=== PATIENT | female | born 1950 | race Asian ===

== ENCOUNTER 2017-03-16 08:57 | Day surgery (SDC) | payer OTHER ==
[~2017-03-16] VITALS: Ht 160 cm; Wt 64.5 kg
[2017-03-16] MEDS ORDERED: LISI20 (09:30)
[2017-03-16] MEDS ORDERED: PRAV20 (09:31)
== END 2017-03-16 11:35 | disposition home or self-care (01) ==
LOC: ORSCSDS 08:57
PROVIDERS: Internal Medicine Gastroenterology
PROC: 0DB98ZX Excision of Duodenum, Via Natural or Artificial Opening Endoscopic, Diagnostic (ICD-10-PCS; principal; 2017-03-16 15:15)
PROC: 0DB68ZX Excision of Stomach, Via Natural or Artificial Opening Endoscopic, Diagnostic (ICD-10-PCS; principal; 2017-03-16 15:15)
DX: R10.13 Epigastric pain (principal); K31.7 Polyp of stomach and duodenum; R11.0 Nausea; Z87.891 Personal history of nicotine dependence; E78.5 Hyperlipidemia, unspecified; Z79.899 Other long term (current) drug therapy
CPT/HCPCS: 88305; 88342; J7120

== ENCOUNTER → 2017-06-13 | Outpatient (CLI) | payer OTHER ==
[~2017-06-13] MED LIST: LISI20; PRAV20
== END ==
LOC: LAB SHORT 13:23 → LAB EV 13:23
DX: J06.9 Acute upper respiratory infection, unspecified (principal)
CPT/HCPCS: 87070

== ENCOUNTER 2018-08-27 06:35 | Emergency (ER) | payer OTHER ==
[~2018-08-27] VITALS: Ht 157.5 cm; Wt 62.6 kg
[2018-08-27 07:04] LABS: BASOPHILS ABSOLUTE AUTO 0.02 K/mm3 (0.00-0.23); BASOPHILS PERCENT AUTO 0 % (0-2); EOSINOPHILS ABSOLUTE AUTO 0.09 K/mm3 (0.00-0.68); EOSINOPHILS PERCENT AUTO 1 % (0-6); Hematocrit 45.1 % (33.0-51.0); Hemoglobin 14.7 g/dL (11.5-16.0); IMMATURE GRAN ABSOLUTE AUTO 0.03 K/mm3 (0.00-0.10); IMMATURE GRAN PERCENT AUTO 0 % (0-1); LYMPHOCYTES PERCENT AUTO 28 % (21-46); MONOCYTES ABSOLUTE AUTO 0.57 K/mm3 (0.16-1.47); MONOCYTES PERCENT AUTO 6 % (4-13); Mean Corpuscular HGB 30.8 pg (26.0-34.0); Mean Corpuscular HGB Conc 32.6 g/dL (31.5-36.5); Mean Corpuscular Volume 94 fL (80-100); Mean Platelet Volume 9.1 fL (9.1-12.4); NEUTROPHILS ABSOLUTE AUTO 6.22 K/mm3 (1.96-9.15); NEUTROPHILS PERCENT AUTO 65 % (41-73); Platelet Count 241 K/mm3 (150-400); RDW Coefficient Variation 12.8 % (11.7-14.2); RDW Standard Deviation 44.3 fL (35.1-46.3); Red Blood Cell Count 4.78 M/mm3 (3.80-5.20); White Blood Cell Count 9.63 K/mm3 (4.00-11.30)
[2018-08-27 07:25] LABS: Alanine Aminotransfer (ALT/SGP 24 U/L (12-78); Albumin, Blood 3.6 g/dL (3.4-5.0); Alk Phos 72 U/L (50-136); Anion Gap 5 mmol/L (6-16); Aspartate Aminotrans (AST/SGOT 16 U/L (12-37); Bilirubin, Total 0.5 mg/dL (0.1-1.0); Blood Urea Nitrogen 20 mg/dL (8-24); Bun/Creatinine Ratio 23.2 (12.0-20.0); CO2, Blood 31 mmol/L (21-32); Calcium, Blood 8.8 mg/dL (8.5-10.1); Chloride, Blood 105 mmol/L (98-108); Creatinine, Blood 0.86 mg/dL (0.40-1.00); Globulin, Blood 3.5 g/dL (2.2-4.0); Glomerular Filtration Rate >60 (60-); Glucose, Blood 85 mg/dL (70-99); Potassium, Blood 3.9 mmol/L (3.5-5.5); Sodium, Blood 141 mmol/L (136-145); Total Protein, Blood 7.1 g/dL (6.4-8.2)
[2018-08-27] MEDS ORDERED: CLON.5 PO (07:53)
[2018-08-27] MEDS ORDERED: Prilosec Otc20 MG PO (07:53)
[2018-08-27] MEDS ORDERED: Amlodipine Besyl5 MG PO (07:53)
[2018-08-27] MEDS ORDERED: PRAV20 PO (07:54)
[2018-08-27] MEDS ORDERED: LISI20 PO (07:54)
[2018-08-27] MEDS ORDERED: MECL12.5 PO (08:56)
== END 2018-08-27 09:18 | disposition home or self-care (01) ==
LOC: ER 06:35
PROVIDERS: Emergency Medicine
DX: R42 Dizziness and giddiness (principal); Z79.899 Other long term (current) drug therapy
CPT/HCPCS: 36415; 80053; 85025; 96360; 99283-25; A9270; J7030

== ENCOUNTER 2018-08-28 06:23 | Emergency (ER) | payer OTHER ==
[~2018-08-28] VITALS: Ht 162.6 cm; Wt 63.5 kg
[~2018-08-28 06:23] MED LIST changes: +Amlodipine Besyl5 MG PO; +CLON.5 PO; +LISI20 PO; +MECL12.5 PO; +PRAV20 PO; +Prilosec Otc20 MG PO
== END 2018-08-28 08:44 | disposition home or self-care (01) ==
LOC: ER 06:23
DX: R42 Dizziness and giddiness (principal)
CPT/HCPCS: 99283

== ENCOUNTER → 2020-11-06 | Outpatient (CLI) | payer OTHER ==
[2020-11-06 10:26] LABS: Appearance, Urine Clear (Clear); Bilirubin, Urine Neg (Neg); Blood, Urine Neg (Neg); Color, Urine Yellow (P-Yellow); Glucose Qualitative, Urine Neg (Normal); Ketones, Urine Neg (Neg); Leukocyte Esterase, Urine Neg (Neg); Nitrite, Urine Neg (Neg); Protein, Urine Neg (Neg); Specific Gravity, Urine 1.005 (1.003-1.022); Urobilinogen, Urine NORM (Normal)
== END ==
LOC: LAB SHORT 10:18 → LAB 10:18
PROVIDERS: Family Medicine
DX: R39.89 Other symptoms and signs involving the genitourinary system (principal)
CPT/HCPCS: 81003

== ENCOUNTER → 2021-11-03 | Outpatient (CLI) | payer OTHER ==
[2021-11-03 13:57] LABS: Stool Occult Bld Immuno 1 Negative (NEGATIVE)
== END | disposition home or self-care (01) ==
LOC: LAB SHORT 12:44
PROVIDERS: Family Medicine
DX: Z12.11 Encounter for screening for malignant neoplasm of colon (principal)
CPT/HCPCS: 82274

== ENCOUNTER 2022-05-11 07:59 | Day surgery (SDC) | payer OTHER ==
[~2022-05-11] VITALS: Ht 157.5 cm; Wt 63.8 kg
== END 2022-05-11 10:43 | disposition home or self-care (01) ==
LOC: ORSCSDS 07:59
PROVIDERS: Internal Medicine Gastroenterology
PROC: 0DBN8ZX Excision of Sigmoid Colon, Via Natural or Artificial Opening Endoscopic, Diagnostic (ICD-10-PCS; principal; 2022-05-11 09:30)
PROC: 0DBL8ZX Excision of Transverse Colon, Via Natural or Artificial Opening Endoscopic, Diagnostic (ICD-10-PCS; principal; 2022-05-11 09:30)
DX: Z12.11 Encounter for screening for malignant neoplasm of colon (principal); K63.5 Polyp of colon; K57.30 Diverticulosis of large intestine without perforation or abscess without bleeding; Z86.010 Personal history of colon polyps; Z79.899 Other long term (current) drug therapy; Z87.891 Personal history of nicotine dependence
CPT/HCPCS: 88305; J2704; J7120

== ENCOUNTER 2022-07-15 07:00 | Day surgery (SDC) | payer OTHER ==
[~2022-07-15] VITALS: Ht 154.9 cm; Wt 66.5 kg
[2022-07-15] VITALS (12 sets, daily range): BP systolic 122–139; BP diastolic 54–76
[~2022-07-15 07:00] MED LIST changes: +ESTRADIOL VAG; +ROSU5 PO; +TOCO1000 PO; +VITAMIN D310 MC4 PO; +Vitamin B-12100 MCG PO; +Vitamin C100 M1 PO
--- NOTE | 2022-07-15 07:44 | NUR ---
Ambulatory in Day Surgery History, Chart, Medications and Allergies reviewed before start of procedure. Lungs clear T/O to Auscultation. Patient confirms NPO status and agrees with scheduled surgery. Pre-Op teaching done. Pt verbalizes understanding.
--- NOTE | 2022-07-15 11:21 | NUR ---
1000 RECEIVED PT FROM PACU, AWAKE VSS, LEFT CHEST AND NECK WITH 2X2 DRESSINGS AND OPSITE DRY AND INTACT. PO FLUIDS AND CRACKERS GIVEN LETTY WELL. 1005 FAMILY AT BEDSIDE 1045 UP TO BR TO VOID STEADY ON FEET. 1100 DC IINSTRUCTS GIVEN WITH VERBAL UNDERSTANDING FROM PATIENT AND FAMILY 1110 DC HOME
== END 2022-07-15 22:57 | disposition home or self-care (01) ==
LOC: ORSCMMR 07:00 → ORD 08:30 → ORSCMMR 08:30
PROVIDERS: Surgery
PROC: B544ZZA Ultrasonography of Left Jugular Veins, Guidance (ICD-10-PCS; principal; 2022-07-15 08:30)
PROC: 0JH60WZ Insertion of Totally Implantable Vascular Access Device into Chest Subcutaneous Tissue and Fascia, Open Approach (ICD-10-PCS; principal; 2022-07-15 08:30)
PROC: 05HN33Z Insertion of Infusion Device into Left Internal Jugular Vein, Percutaneous Approach (ICD-10-PCS; principal; 2022-07-15 08:30)
DX: C50.919 Malignant neoplasm of unspecified site of unspecified female breast (principal); Z17.1 Estrogen receptor negative status [ER-]; I10 Essential (primary) hypertension; Z87.891 Personal history of nicotine dependence; K21.9 Gastro-esophageal reflux disease without esophagitis; E78.5 Hyperlipidemia, unspecified; Z79.899 Other long term (current) drug therapy
CPT/HCPCS: 77001; A9270; C1788; J0690; J1100; J1642; J2405; J2704; J3010; J7120

== ENCOUNTER 2022-08-31 08:22 | Day surgery (SDC) | payer OTHER | END 2022-08-31 22:45 | disposition home or self-care (01) | LOC: RAD 08:22 | DX: C50.811 Malignant neoplasm of overlapping sites of right female breast (principal) | CPT/HCPCS: 36598; Q9967 ==

== ENCOUNTER 2022-10-05 01:36 | Day surgery (SDC) | payer OTHER ==
[2022-10-05 08:54] VITALS: BP 120/61
== END 2022-10-05 09:59 | disposition home or self-care (01) ==
LOC: ATC 01:36
DX: C50.811 Malignant neoplasm of overlapping sites of right female breast (principal); D70.1 Agranulocytosis secondary to cancer chemotherapy; D63.0 Anemia in neoplastic disease
CPT/HCPCS: 36593; J1642; J2997

== ENCOUNTER 2023-01-02 07:57 | Day surgery (SDC) | payer OTHER ==
[2023-01-04] MEDS ORDERED: GABA300 PO (16:43)
== END 2023-01-17 22:54 | disposition home or self-care (01) ==
LOC: MOI US 07:57
DX: C50.919 Malignant neoplasm of unspecified site of unspecified female breast (principal)
CPT/HCPCS: 19285; 77065; A4648

== ENCOUNTER 2023-01-10 07:33 | Day surgery (SDC) | payer OTHER ==
[2023-01-10] VITALS (10 sets, daily range): BP systolic 95–140; BP diastolic 50–64
[~2023-01-10] VITALS: Ht 157.5 cm; Wt 66.4 kg
[~2023-01-10 07:33] MED LIST changes: +GABA300 PO
--- NOTE | 2023-01-10 08:44 | NUR ---
Ambulatory in Day Surgery History, Chart, Medications and Allergies reviewed before start of procedure. Pre-Op teaching done. Pt verbalizes understanding. Patient States Post-Procedure ride home has been arranged with Luís.
--- NOTE | 2023-01-10 10:12 | NUR ---
01/10/23 1012 Marcella Gonzalez 3.5ML METHYLENE BLUE DYE INJECTED INTO RIGHT BREAST BY DR. ZIMMER BEFORE STERILE PREP.
--- NOTE | 2023-01-10 12:32 | NUR ---
PAIN PILL PROVIDED. FAMILY AT BEDSIDE.
--- NOTE | 2023-01-10 13:14 | NUR ---
UP TO DRESS WITH STEADY GAIT. PATIENT'S [id number] AND AT BEDSIDE DURING DISCHARGE INSTRUCTIONS. PATIENT AND FAMILY VERBALIZED DESIRE FOR DISCHARGE. Discharge instructions reviewed with patient. Patient verbalizes understanding. Copy given to patient to take home.
== END 2023-01-10 13:17 | disposition home or self-care (01) ==
LOC: NM 07:33 → ORSCMMR 07:33 → NM 08:00
PROVIDERS: Surgery
PROC: 07B50ZX Excision of Right Axillary Lymphatic, Open Approach, Diagnostic (ICD-10-PCS; principal; 2023-01-10 09:00)
PROC: 0HBT0ZZ Excision of Right Breast, Open Approach (ICD-10-PCS; principal; 2023-01-10 09:00)
DX: C50.911 Malignant neoplasm of unspecified site of right female breast (principal); D36.0 Benign neoplasm of lymph nodes; Z17.1 Estrogen receptor negative status [ER-]; I10 Essential (primary) hypertension; K21.9 Gastro-esophageal reflux disease without esophagitis; E78.00 Pure hypercholesterolemia, unspecified; Z79.899 Other long term (current) drug therapy
CPT/HCPCS: 38792; 76098; 88305; 88307; 88331; 88332; 88360; 88374; A9270; A9520; J0690; J1100; J1885; J2250; J2405; J2704; J2765; J3010; J7120; Q9968